=== PATIENT | female | born 1945 | race Hispanic/Latino ===

== ENCOUNTER → 2017-11-16 | Outpatient (CLI) | payer MEDICARE ==
[~2017-11-16] MED LIST: REGADENOSON 0.4 MG/5 ML PF SYG IVP SCH
== END | disposition home or self-care (01) ==
LOC: SHCH 07:57
PROVIDERS: ATTEND Internal Medicine Cardiovascular Disease
DX: R06.02 Shortness of breath (principal); R51 Headache
CPT/HCPCS: 78452; 93017; 96374; A9500 ×2

== ENCOUNTER → 2017-11-23 | Outpatient (CLI) | payer MEDICARE | END | disposition home or self-care (01) | LOC: SHCH 11:00 | PROVIDERS: ATTEND Internal Medicine Cardiovascular Disease | DX: I34.0 Nonrheumatic mitral (valve) insufficiency (principal); I51.7 Cardiomegaly | CPT/HCPCS: 93306 ==

== ENCOUNTER 2018-12-06 14:00 | Emergency (ER) | payer MEDICARE ==
[2018-12-06] MEDS ORDERED: CLONIDINE HCL 0.1 MG TABLET ONE ×2 (15:00→16:40)
[2018-12-06 15:30] LABS: BASOPHILS % (AUTO) 0.9 % (0.0-5.0); EOSINOPHILS % (AUTO) 0.8 % (0.0-8.0); HEMATOCRIT 37.4 % (36-48); LYMPHOCYTES % (AUTO) 19.3 % (21.0-51.0); MEAN CORPUSCULAR HEMOGLOBIN 30.5 pg (27.0-33.0); MEAN CORPUSCULAR HGB CONC 33.2 g/dL (32.0-36.0); PLATELET COUNT (AUTO) 209 K/uL (130-400); RED BLOOD CELL COUNT(AUTO) 4.06 MIL/uL (4.00-5.50); RED CELL DISTRIBUTION WIDTH 15.5 % (11.0-15.5); WHITE BLOOD COUNT (AUTO) 8.7 K/uL (4.8-10.8)
[2018-12-06 15:40] LABS: CREATININE 5.1 mg/dL (0.5-1.5)
[2018-12-06 15:44] LABS: ALBUMIN 3.2 g/dL (3.5-5.0); BILIRUBIN,TOTAL 0.4 mg/dL (0.2-1.0); TOTAL PROTEIN, SERUM 6.3 g/dL (6.0-8.3)
== END 2018-12-06 18:29 | disposition home or self-care (01) ==
LOC: EDH 14:00
DX: I12.0 Hypertensive chronic kidney disease with stage 5 chronic kidney disease or end stage renal disease (principal); E11.22 Type 2 diabetes mellitus with diabetic chronic kidney disease; N18.6 End stage renal disease; R51 Headache; R53.1 Weakness
CPT/HCPCS: 36415; 70450; 80053; 84484; 85025; 93005

== ENCOUNTER 2018-12-30 20:28 | Emergency (ER) | payer MEDICARE ==
[2018-12-30] MEDS ORDERED: SODIUM CHLORIDE 0.9% 1000ML 2,000 ML IV ONE (21:25)
[2018-12-30] MEDS ORDERED: ONDANSETRON HCL 4 MG/2 ML VIAL ONE (21:28)
[2018-12-30] MEDS ORDERED: INSULIN HUMULIN R 100 UNIT/ML 3ML ONE (21:29)
[2018-12-30 21:32] LABS: EOSINOPHILS % (AUTO) 0.8 % (0.0-8.0); HEMATOCRIT 34.5 % (36-48); LYMPHOCYTES % (AUTO) 8.1 % (21.0-51.0); MEAN CORPUSCULAR HEMOGLOBIN 29.8 pg (27.0-33.0); MEAN CORPUSCULAR HGB CONC 32.1 g/dL (32.0-36.0); MONOCYTES % (AUTO) 5.5 % (3.0-13.0); NEUTROPHILS % (AUTO) 84.6 % (40.0-77.0); PLATELET COUNT (AUTO) 205 K/uL (130-400); RED BLOOD CELL COUNT(AUTO) 3.71 MIL/uL (4.00-5.50); RED CELL DISTRIBUTION WIDTH 15.4 % (11.0-15.5); WHITE BLOOD COUNT (AUTO) 12.8 K/uL (4.8-10.8)
[2018-12-30 21:39] LABS: CREATININE 5.6 mg/dL (0.5-1.5); POTASSIUM 4.1 mmol/L (3.5-5.1)
[2019-01-01] MEDS ORDERED: SEVE800T7 PO (22:33)
[2019-01-01] MEDS ORDERED: LEVO88TA7 PO (22:33)
[2019-01-01] MEDS ORDERED: LISI-613 PO (22:33)
[2019-01-01] MEDS ORDERED: CALC667T6 PO (22:33)
[2019-01-01] MEDS ORDERED: GLIP10TA9 PO (22:33)
[2019-01-01] MEDS ORDERED: FENO145T37 PO (22:33)
[2019-01-01] MEDS ORDERED: PRAV10TA39 PO (22:33)
[2019-01-01] MEDS ORDERED: CHOL200074 PO (22:33)
[2019-01-01] MEDS ORDERED: CARV25TA PO (22:33)
[2019-01-01] MEDS ORDERED: PREG75 PO (22:33)
[2019-01-01] MEDS ORDERED: LINA5TAB PO (22:33)
[2019-01-01] MEDS ORDERED: AMLO10TA7 PO (22:33)
[2019-01-01] MEDS ORDERED: DOCU100T PO (22:33)
[2019-01-01] MEDS ORDERED: ASPI-555 PO (22:33)
== END 2018-12-31 01:28 | disposition home or self-care (01) ==
LOC: EDH 20:28
DX: E11.65 Type 2 diabetes mellitus with hyperglycemia (principal); I12.0 Hypertensive chronic kidney disease with stage 5 chronic kidney disease or end stage renal disease; E11.22 Type 2 diabetes mellitus with diabetic chronic kidney disease; N18.6 End stage renal disease; Z99.2 Dependence on renal dialysis; Z79.899 Other long term (current) drug therapy
CPT/HCPCS: 36415; 80048; 82010; 82948 ×4; 85025; 93005; 96361; 96374; 96375; 99285; J1815; J2405; J7030